=== PATIENT | male | born 1985 | race American Indian/Alaskan Native ===

== ENCOUNTER 2021-07-02 04:21 | Emergency (ER) | payer SELFPAY ==
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
[2021-07-02 05:12] VITALS: BP 128/78
== END 2021-07-02 05:30 ==
LOC: ED 04:21
DX: Z02.89 Encounter for other administrative examinations (principal); S60.410A Abrasion of right index finger, initial encounter; S60.412A Abrasion of right middle finger, initial encounter; X58.XXXA Exposure to other specified factors, initial encounter; Y93.89 Activity, other specified; Y92.89 Other specified places as the place of occurrence of the external cause; Y99.8 Other external cause status
CPT/HCPCS: 99283